=== PATIENT | female | born 1940 | race Caucasian/White ===

== ENCOUNTER 2023-08-31 06:07 | Day surgery (SDC) | payer MEDICARE, BC, SELFPAY ==
[2023-08-31] VITALS (17 sets, daily range): BP systolic 140–177; BP diastolic 63–80; PULSE 60–65; RESP 12–16; TEMP 36.4–36.5; O2SAT 93–97; BMI 36.6
--- OUTSIDE RECORDS SUMMARY | 2023-08-31 06:13 | XMS_ITS | Clinical Summary ---
Author Organization [facility] Address [address] [facility] [place] [address] Care Team Providers Care School Psychology Professor Name Role Phone Shimon Graves Primary Care Provider Deanna Jensen MD Unavailable [phone] Allergies Active Allergy Reactions Criticality Noted Date Comments Chlorpheniramine Maleate Palpitations Low 1 Heart racing Ibuprofen Sodium Rash Low 08/08/2010 Latex Hives 08/08/2010 Diclofenac Sodium Palpitations Low 08/08/2010 Heart racing Medications Medication Sig Dispensed Refills Start Date End Date Status Calcium Carbonate-Vitamin D (CALCIUM + D) 600-200 MG-UNIT per tablet Take 2 tablets by mouth daily. 08/08/2010 Active potassium chloride (KLOR-CON) 10 MEQ CR tablet Take 10 mEq by mouth daily. 08/08/2010 Active Celecoxib (CELEBREX PO) Take 200 mg by mouth daily Active psyllium (METAMUCIL) 58.6 % POWD Take by mouth daily Activ e oxyCODONE-acetamin ophen (PERCOCET) 5-325 MG per tabletIndications: S/P ear surgery Take 1 tablet by mouth every 4 hours as needed for pain Maximum 6 tablets per day 50 tablet 0 01/20/2016 Active atorvastatin (LIPITOR) 40 MG tablet atorvastatin 40 mg tablet TAKE 1 TABLET BY MOUTH AT BEDTIME 06/21/2020 Active baclofen (LIORESAL) 10 MG tablet baclofen 10 mg tablet TAKE 1 TO 2 TABLETS BY MOUTH NEEDED IN THE EVENING FOR MUSCLE SPASM 12/27/2019 Active furosemide (LASIX) 20 MG tablet furosemide 20 mg tablet TAKE 1 TABLET BY MOUTH IN THE MORNING 04/18/2021 Active metFORMIN (GLUCOPHAGE) 500 MG tablet Take 500 mg by mouth 04/24/2021 Active meclizine (ANTIVERT) 25 MG tabletIndications: Meniere's disease, bilateral Take 1 tablet (25 mg) by mouth 3 times daily as needed for dizziness 180 tablet 3 05/04/2023 Active triamterene-HCTZ (MAXZIDE-25) 37.5-25 MG tabletIndications: Meniere's disease, bilateral Take 1 tablet by mouth daily 90 tablet 3 05/04/2023 Active Active Problems Problem Noted Date Diagnosed Date Advance care planning 03/20/2016 Overview: Advance Care Planning 03/20/2016: Receipt of ACP document: Received: Health Care Directive which was witnessed or notarized on 01/13/16. Document previously scanned on 01/21/16. Validation form completed and sent to be scanned. Code Status needs to be updated to reflect choices in most recent ACP document. Confirmed/documented designated decision maker(s). Added by Karen Avery Advance Care Planning Liaison Social History Tobacco Use Types Packs/Day Years Used Date Smoking Tobacco: Former Cigarettes Q uit: 08/08/1994 Tobacco Cessation:Counseling Given: Not Answered Alcohol Use Standard Drinks/Week Comments No 0 (1 standard drink = 0.6 oz pur e alcohol) PHQ-2 Answer Date Recorded PHQ-2 Score 0 06/02/2022 Adolescent Education Answer Date Record ed Getting School Help Needed Not on file 12/19 Sex and Gender Information Value Date Recorded Sex Assigned at Not on file Gender Identity Not on file Sexual Orientation Not on file Last Filed Vital Signs Vital Sign Reading Time Taken Comments Blood Pressure 136/83 05/04/2023 11:15 AM HEEL SLICKER Pulse 71 05/04/2023 11:15 AM HEEL SLICKER Temperature 36.7 ??C (98.1 ??F) 01/20/2016 2:20 PM CS T Respiratory Rate 19 01/20/2016 2:20 PM HEEL SLICKER Oxygen Saturation 97% 04/16/2020 1:53 PM HEEL SLICKER Inhaled Oxygen Concentration - - Weight 96.8 kg (213 lb 6.5 oz) 01/20/2016 7:48 A M HEEL SLICKER Height 168.1 cm (5' 6.2) 01/20/2016 7:48 AM HEEL SLICKER Body Mass Index 34.24 01/20/2016 7:48 AM HEEL SLICKER Plan of Treatment Upcoming Encounters Date Type Department Care Team (Late st Contact Info) Description 10/13/2023 11:00 AM CDT Office Visit [facility] [id number] [place] [phone] Deanna Parham MD [address] [facility] [address] [place] [address] 10/13/2023 11:30 AM CDT Office Visit [facility] [address] [address] Gigi Patterson, Nadeem [id number] [place] [id number] Health Maintenance Due Date Last Done Comments ANNUAL REVIEW OF HM ORDERS 1941 DEXA 1941 LIPID 1941 RSV VACCINE ( & 60+) (1 - 1-dose 60+ series) 2001 FALL RISK ASSESSMENT 2006 ADVANCE CARE PLANNING 03/20/2021 03/20/2016, 017 MEDICARE ANNUAL WELLNESS VISIT 12/05/2022 12/05/2021 PHQ-2 (once per calendar year) 2023 06/02/2022, 05/14/2021 COVID-19 Vaccine ( season) 2023 01/08/2023, 12/05/2021, 08/01/2021, Additional history exists DTAP/TDAP/TD IMMUNIZATION (3 - Td or Tdap) 09/05/2025 09/06/2015, 04/14/2004, 04/14/2004, Additional history exists Pneumococcal Vaccine: 65+ Years Completed 08/01/2014, 06/22/2007 ZOSTER IMMUNIZATION Completed 07/18/2018, 05/10/2018, 07/27/2011 INFLUENZA VACCINE Completed 01/08/2023, , 12/23/2020, Additional history exists HPV IMMUNIZATION Aged Out No longer e ligible based on patient's age to complete this topic IPV IMMUNIZATION Aged Out No longer e ligible based on patient's age to complete this topic MENINGITIS IMMUNIZATION Aged Out No l onger eligible based on patient's age to complete this topic RSV MONOCLONAL ANTIBODY Aged Out No l onger eligible based on patient's age to complete this topic Medical Devices Implanted Type Area Horticultural Agent Device Identifier Shelf Expiration Date Model / Serial / Lot Sheet Silicone [id number] [id number] Implanted:Qty: 1 on 08/11/2010 at [facility] [employer] 01/04/2015 [id number] / / [id number] Imp Breast 650ml Gel Round Hp [id number] Implanted:Qty: 1 on 07/27/2012 by Ravi Dawn MD at [facility] Right: Breast [employer] 03/07/2017 [id number] / [id number] Imp Breast 650ml Gel Round Hp [id number] Implanted:Qty: 1 on 07/27/2012 by Ravi Dawn MD at [facility] Left: Breast [employer] 10/05/2016 [id number] / [id number] Sheet Silicone [id number] [id number] Implanted:Qty: 1 on 01/20/2016 by Morro Alexander DO at [facility] Right: Ear [employer] 06/02/2020 [id number] / / [id number] Ear Imp Torp Hare 5x1.0mm Plasti-Pore [id number] Implanted:Qty: 1 on 01/20/2016 by Morro Alexander DO at [facility] Right: Ear [employer] 03/26/2025 [id number] / / [id number] Advance Directives For more information, please contact: [phone] Documents on File Type Date Recorded Patient Machine Inspector Expl anation Advance Directives and Living Will 01/21/2016 12:44 PM Health Care Directiv e 01/13/16 Care Teams School Psychology Professor Relationship Specialty Start Date End Date Shimon Graves PCP - General 08/07/10 Deanna Parham MD [address] [facility] [address] [place], [place] [address] Assigned Surgical Provider 04/21/20
--- OUTSIDE RECORDS SUMMARY | 2023-08-31 06:13 | XMS_ITS | Clinical Summary ---
Author Organization [facility] Address [place], [place] [address] Care Team Providers Care Sql Server Architect Name Role Phone Tani Verduzco DO Primary Care Provider [phone] Allergies Active Allergy Reactions Criticality Noted Date Comments Chlorpheniramine Palpitations 04/09/2006 rapid heart beats Ibuprofen Rash 04/09/2006 Latex 04/09/2006 pt says has skin sloughing when wears latex gloves. However she says she can blow up balloons and has no problems with elastic or bandaids. Diclofenac Rash 04/09/2006 Medications Medication Sig Dispensed Refills Start Date End Date Status zinc 50 mg tablet Take 50 mg by mouth. Two times weekly on Wednesday and Wednesday 0 2 Active vitamin B complex (B-COMPLEX VITAMIN) tablet Take 1 tablet by mouth once daily. 0 6 Active meclizine (ANTIVERT) 25 mg tablet Take 25 mg by mouth 2 times daily. Active calcium carbonate-cholecalc iferol, 600mg-200 units, (CALTRATE-600 + VIT D) tablet Take 1 tablet by mouth once daily with lunch. Active durable medical equipment (DME)Indications:SO B (shortness of breath),Bilateral lower extremity edema,Atelectasis Incentive spirometer 1 Each 1 Active durable medical equipment (DME)Indications:Franny mbar radicular pain,Right leg pain,Right leg weakness PowerLift Chair 1 Each 2 Active aspirin (ECOTRIN) 81 mg enteric coated tabletIndications:C oronary artery disease Take 1 Tablet (81 mg) by mouth once daily with a meal. 0 2 Active prednisoLONE acetate 1% ophthalmic (ECONOPRED PLUS, PRED FORTE, OMNIPRED) suspension Place 3 Drops into the ear(s) each time if needed. 2 Active nitroglycerin (NITROSTAT) 0.4 mg sublingual tabletIndications:D OE (dyspnea on exertion) Place 1 Tablet (0.4 mg) under the tongue every 5 minutes if needed for Chest Pain. May repeat up to total of 3 doses 10 Tablet 2 2 Active triamterene-hydroch lorothiazide, 37.5-25 mg, (MAXZIDE-25) 37.5-25 mg tablet Take 1 Tablet by mouth once daily. 3 Active durable medical equipment (DME)Indications:Franny mbar radicular pain,VELASCO (dyspnea on exertion) Walker with seat. 1 Each 3 Active potassium chloride (K-TAB) 10 mEq extended-release tablet Take 1 Tablet (10 mEq) by mouth once daily with a meal. 0 3 Active furosemide (LASIX) 40 mg tablet As needed Active atorvastatin (LIPITOR) 40 mg tabletIndications:M ixed hyperlipidemia TAKE 1 TABLET BY MOUTH AT BEDTIME 90 Tablet 2 3 Active sennosides (Senna) 8.6 mg tablet Take 8.6 mg by mouth 2 times daily if needed for Constipation. Active albuterol HFA (ProAir HFA) 90 mcg/actuation inhalerIndications: Wheezing,SOB (shortness of breath) Inhale 1-2 Puffs by mouth every 6 hours if needed for Shortness of Breath 1st choice. 1 Each 3 Active blood sugar diagnostic (Contour Next Test Strips) stripIndications:Ty pe 2 diabetes mellitus with hyperglycemia, without long-term current use of insulin (HC) Dispense item covered by pt ins. E11.9 NIDDM type II - Test 1 time/day. Reason: High A1C 200 Each 3 4 Active metFORMIN (GLUCOPHAGE) 500 mg tabletIndications:T ype 2 diabetes mellitus with hyperglycemia, without long-term current use of insulin (HC) TAKE 1 TABLET BY MOUTH ONCE DAILY WITH A MEAL 90 Tablet 3 4 Active metoprolol succinate (TOPROL XL) 25 mg Sustained-Release tabletIndications:H ypertension, unspecified type Take 1 Tablet (25 mg) by mouth once daily. Please call to schedule with Zoe Bonilla PA-C. 90 Tablet 4 Active gabapentin (NEURONTIN) 300 mg capsuleIndications: Lumbar radicular pain TAKE 2 CAPSULES BY MOUTH THREE TIMES DAILY 540 Capsule 4 Active gabapentin (NEURONTIN) 300 mg capsuleIndications: Lumbar radicular pain TAKE 2 CAPSULES BY MOUTH THREE TIMES DAILY 540 Capsule 4 08/26/19 24 Discontinued Active Problems Problem Noted Date Diagnosed Date Encephalopathy 02/10/2023 COVID-19 02/10/2023 MGUS (monoclonal gammopathy of unknown significa nce) 10/21/2022 Diabetic ulcer of toe of lef t foot associated with type 2 diabetes mellitus, with fat layer exposed 05/28/2022 Type 2 diabetes mellitus wit h hyperglycemia, without long-term current use of insulin 09/09/2021 Angina at rest 06/17/2020 Sinus bradycardia 06/17/2020 Overview: Dual chamber placement in 2018 with ate reprogramming in 2019. Last seen cardiology on 04/03/2020. Sinus node dysfunction 04/03/2020 Hypertensive disorder 09/21/2018 Abnormal nuclear stress test 09/21/2018 Murmur 09/13/2018 Coronary artery disease 09/13/2018 Overview: 3 stents placed October 2018 followed by dual chamber pacemaker in November. Patient says she has 6 stents? Morbid obesity due to excess calories 09/13/2018 Trigger thumb of right hand 09/06/2018 S/P trigger finger release 03/22/2018 Skin cancer 03/17/2018 Overview: 12/2017- right cheek, BCC, Mohs 03/28/18 [place] 12/01/16, left cheek, BCC nodular, Mohs 03/22/17 Dixon Trigger finger of left thumb 02/22/2018 Adenomatous colon polyp 10/01/2017 Overview: Colonoscopy 09/2017 polyp, repeat in 5 years Lumbar radicular pain 03/25/2016 Overview: Mar 2016: started gabapentin (neurontin). ~ March 2016: epidural steroid injection by Dr. Guerra was ~ March 2014:L3-L4 TF epidural steroid injection by Dr. Guerra. Mixed hyperlipidemia 09/06/2015 Renal mass, right 07/29/2015 Venous insufficiency of both lower extremities 0 06/18/2014 Bunion of great toe of left foot 06/18/2014 Advance care planning 09/28/2013 Overview: Directive is on file Advance Care Planning 03/20/2016: Receipt of ACP document: Received: Health Care Directive which was witnessed or notarized on 01/13/16. Document previously scanned on 01/21/16. Validation form completed and sent to be scanned. Code Status needs to be updated to reflect choices in most recent ACP document. Confirmed/documented designated decision maker(s). Added by Karen Avery Advance Care Planning Liaison Breast cancer 11/20/2011 Meniere's disease of both ears 08/06/2010 Internal hemorrhoids with other complication 07/2007 Resolved Problems Problem Noted Date Diagnosed Date Resolved Date MARY 08/10/2012 AHI-45 retest 04/2021- AHI-2.2 08/14/2012 08/01/2021 Encounters Date Type Department Care Team Description 08/25/2023 4:30 PM CDT Office Visit [facility] [address] [place] [address] Kari Lin MD Consult (Temporal artery biopsy per Dr. Lobo ) 08/25/2023 3:40 PM CDT Office Visit [facility] [place] [facility] [address] [place] [address] Otf Lobo MD Follow Up (Follow up CT results ) 08/25/2023 Travel 08/25/2023 Refill [facility] [address] [place] [address] Tani Verduzco, Refill Request (Gabapentin) 08/20/2023 9:00 AM CDT Ancillary Procedure [facility] [address] [place] [address] 08/20/2023 Travel 08/11/2023 4:00 PM CDT Orders Only [facility] [address] [place] [address] Lab, [place] [facility] 08/11/2023 3:20 PM CDT Office Visit [facility] [place] [facility] [address] [place] [address] Otf Lobo MD Consult (Temporal pain /Spot on rt side that feels like it is always bruised, cancer was removed ) 08/11/2023 Telephone [facility] [address] [place] [phone] Emily Laureano RN Device Check (MRI screening) 08/11/2023 Travel 08/05/2023 Telephone [facility] [address] [place] [phone] Otf Lobo MD Referral (Neurology) 08/05/2023 Telephone [facility] [address] [facility] [address] Tani Verduzco DO Referral 08/05/2023 Orders Only [facility] [address] [facility] [facility] [place] [address] Tani Verduzco, <No scans attached> 08/03/2023 Telephone [facility] [address] [facility] [place] [address] Tani Verduzco DO Referral 07/30/2023 2:40 PM CDT Office Visit [facility] [address] [place] [phone] Kate Pereira, BRI Eye Exam (Diabetic) 07/29/2023 9:44 AM CDT - 07/29/2023 11:59 PM CDT Hospital Encounter [facility] [address] [place] [address] Tani Verduzco DO Bumps on skin; Generalized enlarged lymph nodes; Localized enlarged lymph nodes 07/29/2023 Telephone [facility] [address] [place] [address] Tani Verduzco DO Results (ULTRA SOUND) 07/29/2023 Telephone [facility] [address] [place] [address] Tani Verduzco DO Results 07/29/2023 Travel 07/26/2023 3:30 PM CDT Office Visit [facility] [address] [place] [address] Ivette Macedo MD Consult (Right Temporal pain referred by Dr. Hai Verduzco) 07/26/2023 Travel 07/23/2023 9:20 AM CDT Office Visit [facility] [address] [place] [address] Tani Verduzco, Knee Pain/problem (Behind LEFT knee - x2-3 weeks ago was walking and had pain behind her knee and then noted a lump ); Arm Pain/problem (LEFT arm crease - feels small lump - has been bruising more frequent / bleeding ) 07/23/2023 Travel 06/21/2023 Telephone [facility] [address] [facility] [address] [place] [address] Otf Keating MD Refill Request from Last 3 Months Immunizations Name Administration Dates Next Due COVID-19 Vaccine Spikevax (M oderna 50mcg/0.5mL) 12YO+ [id number] Formula PF 01/08/2023 COVID-19 vaccine (Pfizer-Bio NTech 30mcg/0.3mL) 12YO+ BIVALENT PF, MDV 12/05/2021 COVID-19 vaccine (Pfizer-Bio NTech 30mcg/0.3mL) 12YO+ ERASTO-SUCROSE PF, MDV 08/01/2021 COVID-19 vaccine (Pfizer-Bio NTech 30mcg/0.3mL) PF, MDV 12/23/2020,06/01/2020,05/11/2020 Influenza, High-dose Inactivated 12/04/2015,07/2014,12/06/2013 Influenza, IIV3 (Age 6-35 mos) 11/25/2010 Influenza, IIV3 (Age >=3 years) 12/13/19 13,11/20/2011,11/25/2010,2009,12/26/2008,01/10/2008,01/11/2006,1 03/10/2004 Influenza, Inactivated AIIV4 (Age 65+ Years) Preserv Free 01/08/2023,12/05/2021,12/23/2020,2019 Influenza, Inactivated IIV3 (Age 65+ Years) Preserv Free 12/08/2018,11/18/2017,12/29/2016 Pneumococcal Poly,23-Valent (Pneumovax) 06/22/2007 Pneumococcal conj 13-Valent (Prevnar 13) 08/01/2014 Td (Age >=7 Years) 04/14/2004,04/09/2001 Td, Preservative Free (age > = 7 Years) 09/06/2015 Tdap 04/14/2004 Zoster (Shingrix-RZV, recombinant) 07/18/2018, Zoster (Zostavax-ZVL, live) 07/27/2011 Family History Medical History Relation Name Comments Diabetes Brother Heart Disease Brother of diabet es at age 27 Cancer-breast Maternal Aunt orquidea Cancer-breast Maternal Grandmother Diabetes Mother Heart Disease Mother Anesthesia Problem Neg. Other Other No bleeding pro blems or blood clots Relation Name Status Comments Brother Father Maternal Aunt orquidea Maternal Grandmother Mother Neg. Other Social History Tobacco Use Types Packs/Day Years Used Date Smoking Tobacco: Former Cigarettes 0.8 40 0 [birth year]/02/1954 - 05/02/1994 Passive Smoke Exposure: Never Smokeless Tobacco: Never Tobacco Cessation:Counseling Given: Yes Comments:Quit in 1994 Alcohol Use Standard Drinks/Week Comments No 0 (1 standard drink = 0.6 oz pur e alcohol) PHQ-2 Answer Date Recorded PHQ-2 TOTAL SCORE 0 12/05/2021 Social Connections Answer Date Recorded Frequency of Communication with Friends and Fami ly 0 02/11/2023 Financial Resource Strain Answer Date R ecorded Difficulty of Paying Living Expenses 3 02/11/2023 Difficulty of Paying Living Expenses Not on file 02/11/2023 Food Insecurity Answer Date Recorded Worried About Running Out of Food in the Last Ye ar 1 02/11/2023 Transportation Needs Answer Date Record ed Lack of Transportation (Medical) 1 02/11/2023 Housing Stability Answer Date Recorded Unable to Pay for Housing in the Last Year 1 02/11/2023 Sex and Gender Information Value Date Recorded Sex Assigned at Not on file Gender Identity Not on file Sexual Orientation Not on file Obstetrics History Para Term AB IAB SAB Ectopic Multiple Livin g Live Births 0 0 0 0 0 0 0 0 0 0 0 Last Filed Vital Signs Vital Sign Reading Time Taken Comments Blood Pressure 144/84 08/25/2023 3:11 PM CDT Vitals pulled from earlier visit today. Pulse 68 08/25/2023 3:11 PM CDT Vitals pulled from earlier visit today. Temperature 37.1 ??C (98.8 ??F) 02/12/2023 8 :23 AM BEHAVIORAL HEALTH COUNSELOR Respiratory Rate 18 02/12/2023 8:23 AM BEHAVIORAL HEALTH COUNSELOR Oxygen Saturation 94% 08/25/2023 3:1 1 PM CDT Vitals pulled from earlier visit today. Inhaled Oxygen Concentration - - Weight 102.1 kg (225 lb) 08/11/2023 2:5 9 PM CDT Height 162.6 cm (5' 4) 02/10/2023 6:39 PM BEHAVIORAL HEALTH COUNSELOR Body Mass Index 38.62 02/10/2023 6:39 PM BEHAVIORAL HEALTH COUNSELOR Plan of Treatment Upcoming Encounters Date Type Department Care Team (Late st Contact Info) Description 08/31/2023 8:00 AM CDT Office Visit [facility] [address] [place] [phone] Kari Lin MD [address] [place] [address] 09/30/2023 2:20 PM CDT Office Visit [facility] [address] [id number] Alondra Koch MD [address] [facility] [address] [place], [place] [address] 10/19/2023 11:[address] [facility] [address] [place] [address] 10/19/2023 4:00 PM CDT Appointment [facility] Pacemaker MRI/CT [address] [place] [address] 10/20/2023 1:30 PM CDT Cardiac Device Check [facility] [place] [facility] [address] [place] [address] 10/27/2023 11:00 AM CDT Office Visit [facility] [place] [facility] [address] [place] [address] Otf Lobo MD [address] [place] [address] Health Maintenance Due Date Last Done Comments Depression screening for age 12+ 12/05/2022 12/05/2021, 08/01/2021, 08/01/2021, Additional history exists Medicare Wellness for age 65+ 12/06/2022, 10/09/2016, 09/06/2015, Additional history exists COVID-19 vaccine series (2022- season) 2023 01/08/2023, 12/05/2021, 08/01/2021, Additional history exists BMI (ht and wt on same day) for age 18+ 06/27/2023 06/26/2022, 01/30/2022, 12/05/2021, Additional history exists Influenza for age 65+ 11/07/2023 01/08/2023 , 12/05/2021, 12/23/2020, Additional history exists Tetanus booster 09/05/2025 09/06/2015, 09/2004, 04/14/2004, Additional history exists Tdap Completed 04/14/2004 DEXA/DXA scan for age 65+ Completed 08/20/2011, Pneumococcal series for age 65+ Completed 5, 06/22/2007 Zoster (shingles) series for age 50+ Completed 07/18/2018, 05/10/2018, 07/27/2011 Medical Devices Implanted Type Area Statement Clerks Manager Device Identifier Shelf Expiration Date Model / Serial / Lot [id number] xpander Tissue Cpx3 Ht W/Sut Tab 550cc [[id number]] Implanted:Qty: 1 on 10/05/2011 at [facility] Explanted:at [facility] (Quantity not on file) Left: Breast [employer]Now [id number]# / [id number] / [id number] xpander Tissue Cpx3 Ht W/Sut Tab 550cc [[id number]] Implanted:Qty: 1 on 10/05/2011 at [facility] Explanted:at [facility] (Quantity not on file) Right: Breast [employer]Now [id number]# / [id number] / [id number] - [id number] Implanted:Qty: 1 on 07/19/2017 by Rafael Neal DPM at [facility] Right: Foot [employer] [id number] / / Description:3.0 headed screw 18 mm length [id number] - [id number] Implanted:Qty: 1 on 07/19/2017 by Rafael Neal DPM at [facility] Right: Foot [id number] / / Description:3.0mm headed scr ew 20mm length Lead Kit 4.32mm Spacing 28cm Length Interstim - [id number] Implanted:Qty: 1 on 11/24/2022 by Jeremy Gerardo MD at [facility] Right: [facility] [employer] Pain Therapy 06/14/2024 [id number] / / [id number] Neuro Tyrx Absorb Antibacterial - [id number] Implanted:Qty: 1 on 11/24/2022 by Jeremy Gerardo MD at [facility] Right: Buttock Medtronic 05/21/2023 [id number] / / [id number] Sys Interstim X Surescan Mri Lead And Smart Lineman Service Or Work Dispatcher - [id number] Implanted:Qty: 1 on 11/24/2022 by Jeremy Gerardo MD at [facility] Right: Buttock Medtronic Pain Therapy 03/21/2024 [id number] / / [id number] H Procedures Procedure Name Priority Date/Time Associated Diagnosis Comments CT HEAD BRAIN WO Routine 08/20/2023 9:22 AM CDT Temporal arteritis (HC) C-REACTIVE PROTEIN Routine 08/11/2023 4: 00 PM CDT Temporal arteritis (HC) SEDIMENTATION RATE Routine 08/11/2023 4: 00 PM CDT Temporal arteritis (HC) US UPPER EXTREMITY SOFT TISSUE LEFT Routine 07/29/2023 10:21 AM CDT Bumps on skin Generalized enlarged lymph nodes US LOWER EXTREMITY SOFT TISSUE LEFT Routine 07/29/2023 10:21 AM CDT Bumps on skin Localized enlarged lymph nodes URINE ALBUMIN TO CREATININE RATIO, RANDOM Routine 07/23/2023 10:09 AM CDT Type 2 diabetes mellitus with hyperglycemia, without long-term current use of insulin (HC) CBC WITH AUTO DIFFERENTIAL Routine 07/23/2023 10:01 AM CDT Easy bruising C-REACTIVE PROTEIN Routine 07/23/2023 10 :01 AM CDT Temporal pain SEDIMENTATION RATE STAT 07/23/2023 10 :01 AM CDT Temporal pain CBC WITH AUTO DIFFERENTIAL Routine 07/23/2023 10:01 AM CDT Easy bruising XR DXA BONE DENSITY 2 SITES AXIAL Routine 08/20/2011 9:57 AM CDT Menopausal state from Last 3 Months or Most Recently Relevant to Health Maintenance Results * CT HEAD BRAIN WO (08/20/2023 9:22 AM CDT) Anatomical Region Laterality Modality HEAD, BRAIN Computed Tomogra phy 08/20/2023 10:4 5 AM CDT Impressions 08/20/2023 10:45 AM CDT No acute intracranial abnormality. No significant changes compared to the prior exam. Please note that all CT scans at this facility use dose modulation, iterative reconstruction, and/or weight-based dosing when appropriate to reduce radiation dose to as low as reasonably achievable. Dictated by Shimon Flores MD @ 08/20/2023 10:45:32 AM (Electronically Signed) Narrative 08/20/2023 10:45 AM CDT For Patients: ??As a result of the Cures Act, medical imaging exams and procedure reports are released immediately into your electronic medical record. ??You may view this report before your referring provider. ??If you have questions, please contact your health care provider. INDICATION: Localized right temporal pain post cancer removal - rule out metastatic deposit. Temporal arteritis, headache, new or worsening TECHNIQUE: CT of the head without contrast. Coronal and sagittal reformats. Bone and soft tissue algorithms. COMPARISON: CT 02/10/2023 FINDINGS: No acute intracranial hemorrhage or extra-axial collection. No evidence of acute cortical infarction. ?? No mass effect or midline shift. Mild generalized cerebral/cerebellar parenchymal volume loss. Mild regions of decreased attenuation within the periventricular and subcortical white matter of both cerebral hemispheres most likely reflects chronic microvascular ischemic disease and age related change in this patient. Vascular calcifications within the carotid siphons and vertebral arteries. Stable foci of hypoattenuation in the basal ganglia that likely represent prominent perivascular spaces. Orbital contents are normal. ??No calvarial fractures. No lytic or sclerotic osseous lesions within the calvarium or skull base. Hyperostosis frontalis internus. Scalp and other imaged soft tissue structures are normal. Mastoid air cells are clear. Left canal wall up mastoidectomy. Procedure Note Shimon Flores MD - 08/20/2023 For Patients: As a result of the Cures Act, medical imagingexams and procedure reports are released immediately into your electronicmedical record. You may view this report before your referring provider.If you have questions, please contact your health care provider. INDICATION: Localized right temporal pain post cancer removal - rule out metastaticdeposit. Temporal arteritis, headache, new or worsening TECHNIQUE: CT of the head without contrast. Coronal and sagittal reformats. Bone andsoft tissue algorithms. COMPARISON: CT 02/10/2023 FINDINGS: No acute intracranial hemorrhage or extra-axial collection. No evidence ofacute cortical infarction. No mass effect or midline shift. Mild generalized cerebral/cerebellarparenchymal volume loss. Mild regions of decreased attenuation within theperiventricular and subcortical white matter of both cerebral hemispheresmost likely reflects chronic microvascular ischemic disease and agerelated change in this patient. Vascular calcifications within the carotidsiphons and vertebral arteries. Stable foci of hypoattenuation in thebasal ganglia that likely represent prominent perivascular spaces. Orbital contents are normal. No calvarial fractures. No lytic orsclerotic osseous lesions within the calvarium or skull base. Hyperostosisfrontalis internus. Scalp and other imaged soft tissue structures arenormal. Mastoid air cells are clear. Left canal wall up mastoidectomy. IMPRESSION: No acute intracranial abnormality. No significant changes compared to theprior exam. Please note that all CT scans at this facility use dose modulation,iterative reconstruction, and/or weight-based dosing when appropriate toreduce radiation dose to as low as reasonably achievable. Dictated by Shimon Flores MD @ 08/20/2023 10:45:32 AM (Electronically Signed) Otf Lobo MD CT * SEDIMENTATION RATE (08/11/2023 4:00 PM CDT) Only the most recent of2 resultswithin the time period is included. [facility] SEDIMENTATION RATE 17 <30 mm/hr 2023 2:39 PM CDT [facility] Blood BLOOD SPECIMEN / Unknown Butterfly / Unknown 08/11/2023 4:00 PM CDT 08/11/2023 4:01 PM CDT Otf Lobo MD [facility] [address] [place] [address], * C-REACTIVE PROTEIN (08/11/2023 4:00 PM CDT) Only the most recent of2 resultswithin the time period is included. [facility] C-REACTIVE PROTEIN 0.4 <0.5 mg/dL 08/12/2023 2:08 PM CDT [facility] Blood BLOOD SPECIMEN / Unknown Butterfly / Unknown 08/11/2023 4:00 PM CDT 08/11/2023 4:01 PM CDT Otf Lobo MD CHEMISTRY [facility] [address] [place] [address], [place] * US UPPER EXTREMITY SOFT TISSUE LEFT (07/29/2023 10:21 AM CDT) Anatomical Region Laterality Modality ARM L Ultrasound, Othe r 07/29/2023 10:4 2 AM CDT Narrative 07/29/2023 10:42 AM CDT For Patients: ??As a result of the Cures Act, medical imaging exams and procedure reports are released immediately into your electronic medical record. ??You may view this report before your referring provider. ??If you have questions, please contact your health care provider. INDICATION: Bumps on skin. Generalized enlarged lymph nodes. TECHNIQUE: Ultrasound left upper extremity. FINDINGS: Targeted ultrasound was obtained over the left antecubital space in the area of interest. There is a 1.5 x 1.2 x 0.8 cm hyperechoic focus within the subcuticular soft tissues. Dermis and muscle are normal. Impression: Nonspecific solid focus within the subcuticular tissue of the antecubital space. Dictated by Enedina Pineda MD @ 07/29/2023 10:42:49 AM (Electronically Signed) Procedure Note Jace Pineda MD - 07/29/2023 For Patients: As a result of the Cures Act, medical imagingexams and procedure reports are released immediately into your electronicmedical record. You may view this report before your referring provider.If you have questions, please contact your health care provider. INDICATION: Bumps on skin. Generalized enlarged lymph nodes. TECHNIQUE: Ultrasound left upper extremity. FINDINGS: Targeted ultrasound was obtained over the left antecubital space in thearea of interest. There is a 1.5 x 1.2 x 0.8 cm hyperechoic focus withinthe subcuticular soft tissues. Dermis and muscle are normal. Impression: Nonspecific solid focus within the subcuticular tissue of the antecubitalspace. Dictated by Enedina Pineda MD @ 07/29/2023 10:42:49 AM (Electronically Signed) Adei Kamranqra DO US * US LOWER EXTREMITY SOFT TISSUE LEFT (07/29/2023 10:21 AM CDT) Anatomical Region Laterality Modality ARM R Ultrasound, Othe r 07/29/2023 10:4 0 AM CDT Narrative 07/29/2023 10:40 AM CDT For Patients: ??As a result of the Cures Act, medical imaging exams and procedure reports are released immediately into your electronic medical record. ??You may view this report before your referring provider. ??If you have questions, please contact your health care provider. INDICATION: Palm 7 scan. TECHNIQUE: Ultrasound posterior left thigh. FINDINGS: Targeted ultrasound was obtained over the area of interest in the posterior left thigh just superior to the knee. Normal dermis, subcuticular tissue and muscle. No cyst solid mass or other ultrasound abnormality. No lymphadenopathy. Dictated by Enedina Pineda MD @ 07/29/2023 10:40:55 AM (Electronically Signed) Procedure Note Jace Pineda MD - 07/29/2023 For Patients: As a result of the Cures Act, medical imagingexams and procedure reports are released immediately into your electronicmedical record. You may view this report before your referring provider.If you have questions, please contact your health care provider. INDICATION: Palm 7 scan. TECHNIQUE: Ultrasound posterior left thigh. FINDINGS: Targeted ultrasound was obtained over the area of interest in theposterior left thigh just superior to the knee. Normal dermis,subcuticular tissue and muscle. No cyst solid mass or other ultrasoundabnormality. No lymphadenopathy. Dictated by Enedina Pineda MD @ 07/29/2023 10:40:55 AM (Electronically Signed) Adei Kamranqra DO US * URINE ALBUMIN TO CREATININE RATIO, RANDOM (07/23/2023 10:09 AM CDT) ALB RAND URINE <12.0 mg/L 07/23/2023 7:27 PM CDT [facility] CREATININE,URINE 0.27 g/L 07/23/19 24 7:27 PM CDT [facility] ALBUMIN TO CREATININE RATIO,RAND UR 07/23/2023 7:27 PM CDT [facility] Comment:Urine Albumin below measurement range, unable to calculate. Urine URINE SPECIMEN / Unknown Non-Blood / Unknown 07/23/2023 10:09 AM CDT 07/23/2023 10:[address] [facility] - 07/23/2023 7:27 PM CDT If Albumin to Creatinine Ratio is elevated, consider the following: ? Elevations seen with incipient nephropathy associated ?? with diabetes mellitus or hypertension. Stress, exercise,hematuria, ?? and urinary tract infection may also produce elevated results. If clinically indicated, confirm with ?24 Hour Albumin to Creatinine Ratio. ?? Tani Verduzco DO URINE [facility] [address] [place] [address], * (ABNORMAL) CBC WITH AUTO DIFFERENTIAL (07/23/2023 10:01 AM CDT) WHITE BLOOD COUNT 8.1 4.5 - 11.0 thou/cu mm 07/23/2023 10:14 AM CDT [facility] RED BLOOD COUNT 4.71 4.00 - 5.20 mil/cu mm 07/23/2023 10:14 AM CDT [facility] HEMOGLOBIN 14.0 12.0 - 16.0 g/dL 07/23/2023 10:14 AM CDT [facility] HEMATOCRIT 40.9 33.0 - 51.0 % 07/23/2023 10:14 AM CDT [facility] MCV 87 80 - 100 fL 07/23/2023 10:14 AM CDT [facility] MCH 29.7 26.0 - 34.0 pg 07/23/2023 10:14 AM CDT [facility] MCHC 34.2 32.0 - 36.0 g/dL 07/23/2023 10:14 AM CDT [facility] RDW 13.9 11.5 - 15.5 % 07/23/2023 10:14 AM CDT [facility] PLATELET COUNT 189 140 - 440 thou/cu mm 07/23/2023 10:14 AM CDT [facility] MPV 11.2(H) 6.5 - 11.0 fL 07/23/2023 10:14 AM CDT [facility] % NEUT 69.8 % 07/23/2023 10:14 AM CDT [facility] % LYMPH 20.3 % 07/23/2023 10:14 AM CDT [facility] % MONO 7.4 % 07/23/2023 10:14 AM CDT [facility] % EOS 2.0 % 07/23/2023 10:14 AM CDT [facility] % BASO 0.5 % 07/23/2023 10:14 AM CDT [facility] ABSOLUTE NEUTROPHILS 5.7 1.7 - 7.0 thou/cu mm 07/23/2023 10:14 AM CDT [facility] ABSOLUTE LYMPHOCYTES 1.7 0.9 - 2.9 thou/cu mm 07/23/2023 10:14 AM CDT [facility] ABSOLUTE MONOCYTES 0.6 <0.9 thou/cu mm 07/23/2023 10:14 AM CDT [facility] ABSOLUTE EOSINOPHILS 0.2 <0.5 thou/cu mm 07/23/2023 10:14 AM CDT [facility] ABSOLUTE BASOPHILS 0.0 <0.3 thou/cu mm 07/23/2023 10:14 AM CDT [facility] Blood BLOOD SPECIMEN / Unknown Venipuncture / Unknown 07/23/2023 10:01 AM CDT 07/23/2023 10:04 AM CDT Tani Verduzco DO HEMATOLOGY [facility] [address] [place] [address], * XR DEXA BONE DENSITY 2 SITES (08/20/2011 9:57 AM CDT) Anatomical Region Laterality Modality Spine, HIPS, HIPL, HIPR Other Narrative 08/24/2011 7:49 AM CDT Please see scanned document for results of this study. Procedure Note Michelle Arrington PA - 08/24/2011 Please see scanned document for results of this study. Shimon Graves MD DEXA from Last 3 Months or Most Recently Relevant to Health Maintenance Insurance Payer Benefit Plan / Group Subscriber ID Effective Dates Phone Address Type WC WORKERS COMP WC WORKERS COMP [id number] 2005-Pres ent [address] [place] [address] MEDICARE PART B - HB USE ONLY MEDICARE PART B HB ONLY [id number] 2006-Pres ent ATTN: CLAIMS [address] [place] [address] MEDICARE PART A - HB USE ONLY MEDICARE PART A HB ONLY [id number] 2006-Pres ent ATTN: CLAIMS [address] [place] [address] BLUE CROSS MR BLUE [employer]OSS [employer] MR PB ONLY [id number] 2016-Prese nt [address] [address] [place] [address] BLUE CROSS [employer] BLUE HB ONLY [id number] 2016-Prese nt [address] [address] [place] [address] [facility] [id number] 2022-10/[address] ATTN: [place] [address] Advance Directives Documents on File Type Date Recorded 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 Central 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 anation Healthcare Directive 02/03/2016 10:09 AM UPDATED HEALTHCARE DIRECTIVE, TRACEY GUERRERO, 01/13/16 Healthcare Directive 10/11/2011 3:09 PM * Full Code (Latest Code Status on File) Date Activated Date Inactivated Comments 02/11/2023 1:17 AM 02/12/2023 3:45 PM Question Answer Comments Code Status Discussion: Reviewed Preferences * Full Code Date Activated Date Inactivated Comments 11/24/2022 6:38 AM 11/24/2022 1:38 PM Question Answer Comments Code Status Discussion: Unable to Assess Preferences, Provider to review later * Full Code Date Activated Date Inactivated Comments 11/17/2022 8:40 AM 11/18/2022 2:18 AM Question Answer Comments Code Status Discussion: Unable to Assess Preferences, Provider to review later * Full Code Date Activated Date Inactivated Comments 08/06/2021 5:57 AM 08/06/2021 2:53 PM Question Answer Comments Code Status Discussion: Per Existing Order * Full Code Date Activated Date Inactivated Comments 03/18/2020 9:45 AM 03/18/2020 5:16 PM Question Answer Comments Code Status Discussion: Discussed Care Teams Sql Server Architect Relationship Specialty Start Date End Date Tani Verduzco DO [address] [place] [address] PCP - General Family Practice 05/06/20
--- OUTSIDE RECORDS SUMMARY | 2023-08-31 06:13 | XMS_ITS | Referral Summary ---
Author Organization [employer] Address [address] [place] [address] Care Team Providers Care Career Transition Specialist Name Role Phone Shimon Graves Primary Care Provider Deanna Jensen MD Unavailable [phone] Allergies Active Allergy Reactions Criticality Noted Date [...] Comments Blood Pressure 136/83 05/04/2023 11:15 AM CLOCK MECHANIC Pulse 71 05/04/2023 11:15 AM CLOCK MECHANIC Temperature 36.7 ??C (98.1 ??F) 01/20/2016 2:20 PM CS T Respiratory Rate 19 01/20/2016 2:20 PM CLOCK MECHANIC Oxygen Saturation 97% 04/16/2020 1:53 PM CLOCK MECHANIC Inhaled Oxygen Concentration - - Weight 96.8 kg (213 lb 6.5 oz) 01/20/2016 7:48 A M CLOCK MECHANIC Height 168.1 cm (5' 6.2) 01/20/2016 7:48 AM CLOCK MECHANIC Body Mass Index 34.24 01/20/2016 7:48 AM CLOCK MECHANIC Plan of Treatment Upcoming Encounters Date Type Department Care Team (Late st Contact Info) Description 10/13/2023 11:00 AM CDT Office Visit [address] [address] Deanna Parham MD [address] [place] [address] 10/13/2023 11:30 AM CDT Office Visit [facility] [address] [address] Gigi Patterson AuD [address] [place] [address] Medical Devices Implanted Type Area Hemp Fiber Taker Off Device Identifier Shelf Expiration Date Model / Serial / Lot Sheet Silicone [id number] Implanted:Qty: 1 on 08/11/2010 at [facility] [employer] 01/04/2015 [id number] / / [id number] Imp Breast 650ml Gel Round Hp [id number] Implanted:Qty: 1 on 07/27/2012 by Ravi Dawn MD at [facility] Right: Breast [employer] 03/07/2017 [id number] / [id number] Imp Breast 650ml Gel Round Hp [id number] Implanted:Qty: 1 on 07/27/2012 by Ravi Dawn MD at [facility] Left: Breast [employer] 10/05/2016 [id number] / [id number] Sheet Silicone [id number] Implanted:Qty: 1 on 01/20/2016 by Morro Alexander DO at [facility] Right: Ear [employer] 06/02/2020 [id number] / / [id number] Ear Imp Torp Hare 5x1.0mm Plasti-Pore [id number] Implanted:Qty: 1 on 01/20/2016 by Morro Alexander DO at [facility] Right: Ear [employer] 03/26/2025 [id number] / / [id number] Advance Directives For more information, please contact: [phone] Documents on File Type Date Recorded Patient Plant And Maintenance Technician Expl anation Advance Directives and Living Will 01/21/2016 12:44 PM Health Care Directiv e 01/13/16 Care Teams Career Transition Specialist Relationship Specialty Start Date End Date Shimon Graves PCP - General 08/07/10 Deanna Parham MD [address] [facility] [address] [place] [address] Assigned Surgical Provider 04/21/20
--- OUTSIDE RECORDS SUMMARY | 2023-08-31 06:13 | XMS_ITS | Encounter Summary ---
Author Organization [place] Address [address] [facility] [place] [address] Care Team Providers Care Technical Services Assistant Name Role Phone Shimon Graves A Primary Care Provider Deanna Jensen MD Unavailable [phone] Reason for Visit * Reason Onset Date Comments Medication Question 12/01/2021 Medication Q uestion or concern regarding medication Prescription ClarificationName of Medication: prednisolone ear dropsPrescribing Provider: Prasad [facility]: [facility] [place] What on the order needs clarification? Pt wants to know if there is a generic med this one is to expensive Encounter Details Date Type Department Care Team (Late st Contact Info) Description 12/01/[address] [address] Deanna Parham MD [address] [place] [address] [address] [place] [address] Medication Question (Medication Question or concern regarding medication /Prescription Clarification/Name of Medication: prednisolone ear drops/Prescribing Provider: Prasad / Pharmacy: [facility] [place]/ What on the order needs clarification? Pt wants to know if there is a generic med this one is to expensive/) Social History Tobacco Use Types Packs/Day Years Used Date Smoking Tobacco: Former Cigarettes Q uit: 08/08/1994 Alcohol Use Standard Drinks/Week Comments No 0 (1 standard drink = 0.6 oz pur e alcohol) PHQ-2 Answer Date Recorded PHQ-2 Score 0 05/14/2021 Sex and Gender Information Value Date Recorded Sex Assigned at Not on file Gender Identity Not on file Sexual Orientation Not on file COVID-19 Exposure Response Date Recorded In the last 10 days, have yo u been in contact with someone who was confirmed or suspected to have Coronavirus/COVID-19? No / Unsure 11/28/2021 10:55 AM CDT documented as of this encounter Miscellaneous Notes * Telephone Encounter - Teresa Byrd - 12/01/2021 2:19 PM CDT M [facility] Call Center Phone Message May a detailed message be left on voicemail: yes Reason for Call: Medication Question or concern regarding medication Prescription Clarification Name of Medication: prednisolone ear drops Prescribing Provider: Prasad [facility]acy: [facility] [place] What on the order needs clarification? Pt wants to know if there is a generic med this one is to expensive Action Taken: Other: routing to Refill team Travel Screening: Not Applicable documented in this encounter Plan of Treatment Upcoming Encounters Date Type Department Care Team (Late st Contact Info) Description 10/13/2023 11:00 AM CDT Office Visit [address] [address] Deanna Parham MD [address] [facility] [address] [place], [place] [address] 10/13/2023 11:30 AM CDT Office Visit [facility] [place] [id number] [place] [address] Gigi Patterson AuD [address] [place] [address] [phone] documented as of this encounter Visit Diagnoses Diagnosis Chronic otitis media of right ear with posterior perforation- Primary documented in this encounter Care Teams Technical Services Assistant Relationship Specialty Start Date End Date Shimon Graves PCP - General 08/07/10 Deanna Parham MD [address] [facility] [address] [place] [address] Assigned Surgical Provider 04/21/20 documented as of this encounter
--- OUTSIDE RECORDS SUMMARY | 2023-08-31 06:13 | XMS_ITS | Encounter Summary ---
Author Organization [place] Address [facility] [place] [address] Care Team Providers Care Barge Hand Name Role Phone StarShimon A Primary Care Provider Deanna Jensen MD Unavailable [phone] Reason for Visit * Reason Onset Date Comments Prior Auth - Medication 12/02/2021 ciproflo xacin-dexamethasone (CIPRODEX) 0.3- 0.1 % otic suspension - EPA DENIED Encounter Details Date Type Department Care Team (Late st Contact Info) Description 12/02/[address] [address] Deanna Parham MD [address] [facility] [address] [place] [address] Prior Auth - Medication (ciprofloxacin-dexamet hasone (CIPRODEX) 0.3-0.1 % otic suspension - EPA DENIED) Social History Tobacco Use Types Packs/Day Years [...] encounter Miscellaneous Notes * Telephone Encounter - Angelica Ramos - 12/02/2021 11:23 AM CDT Images from the original note were not included. PRIOR AUTHORIZATION DENIED Medication: ciprofloxacin-dexamethasone (CIPRODEX) 0.3-0.1 % otic suspension - EPA DENIED Denial Date: 12/02/2021 Denial Rational: Appeal Information: documented in this encounter Plan of Treatment Upcoming Encounters Date Type Department Care Team (Late st Contact Info) Description 10/13/2023 11:00 AM CDT Office Visit [address] [phone] Deanna Parham MD [address] [place] [phone] 10/13/2023 11:30 AM CDT Office Visit [facility] Audiology [address] [address] Gigi Patterson, Nadeem [address] [place] [address] [phone] documented as of this encounter Visit Diagnoses Diagnosis Chronic otitis media of right ear with posterior perforation- Primary documented in this encounter Care Teams Barge Hand Relationship Specialty Start Date End Date Shimon Graves PCP - General 08/07/10 Deanna Parham MD [address] [place] [address] [id number] Assigned Surgical Provider 04/21/20 documented as of this encounter
--- OUTSIDE RECORDS SUMMARY | 2023-08-31 06:13 | XMS_ITS | Data Portability ---
Author Organization [facility], [facility] Address [address] [place] [address] Care Team Providers Care Preschool Paraprofessional Name Role Phone JESSICA GUERRERO Primary Care Provider Assessment No assessment recorded. Plan of Treatment Reminders Order Date Submit Date Provider Last Modified By Organization Details Last Modified Time Details Appointments None record ed. Lab None record ed. Referral None record ed. Procedures None record ed. Surgeries None record ed. Imaging None record ed. Medication Orders None record ed. Patient TargetsNo targets recorded. Patient InstructionsNo instructions recorded. Reason for Referral None Reported. Results Created Date Observation Date Name Description Value Unit Range Abnormal Flag LastModifiedBy Organization Detail LastModifiedTime 10/03/19 21 09/30/2020 measu remen t of post- voidi ng resid ual urine and/o r bladd er capac ity (PROC ) No observ ation record ed. [email or web address] Not Available 10/02/2020 13:25:26 10/19/19 21 09/23/2020 US, renal No observ ation record ed. Not Available 10/18/2020 11:33:53 10/19/19 21 06/26/2019 US, renal No observ ation record ed. Not Available 10/18/2020 11:34:42 10/19/19 21 09/28/2018 imagi ng/di agnos tic resul t No observ ation record ed. Not Available 10/18/2020 11:35:50 Result Notes None recorded. Problems Name Status Onset Date Resolution Date Notes Provider Name and Address Organization Details Recorded Time Hypertensive disorder Active 020 I10 : Essential (primary) hypertension Not Available [facility] 0 13:33:18 Problem Notes None recorded. Procedures Surgical History None recorded. Imaging Results Imaging Date Name Status LastModified by Organiz ation Details LastModified Time 09/30/2020 measurement of post-voiding residual urine and/or bladder capacity (PROC) completed [email or web address] Information not available 10/02/2020 13:25:26 09/23/2020 US, renal completed Information no t available 10/18/2020 11:33:53 06/26/2019 US, renal completed Information no t available 10/18/2020 11:34:42 09/28/2018 imaging/diagnos tic result completed Information not available 10/18/2020 11:35:50 Procedure Notes None recorded. Medical Equipment None Reported. Allergies Allergen ID Allergen Name Allergen Category Reaction Reaction Severity Criticality Documentation Date Start Date Code Code System Note Provider Name and Address Organization Details Recorded Time 322870 ibuprofen medicatio n Not available Not available Not available 12/17/20192019 5640 RxNorm Not Available [facility] 0 13:33:02 Medications Name Sig Start Date Stop Date Status Note LastModified by Organization Details LastModified Time furosemide 40 mg tablet TAKE 1 TABLET BY MOUTH IN THE MORNING FOR 5 DAYS active Not Available Not Available No t Available atorvastati n 40 mg tablet TAKE 1 TABLET BY MOUTH AT BEDTIME active Not Available Not Available No t Available amlodipine 5 mg tablet TAKE 1 TABLET BY MOUTH ONCE DAILY active Not Available Not Available No t Available triamterene 37.5 mg-hydrochl orothiazide 25 mg capsule TAKE 1 CAPSULE BY MOUTH IN THE MORNING 10/21 completed Not Available Not Available Not Available oxycodone-a cetaminophe n 5 mg-325 mg tablet TAKE 1 TO 2 TABLETS BY MOUTH EVERY 4 HOURS NEEDED FOR PAIN . DO NOT EXCEED 6 PER 24 HOURS . DO NOT EXCEED 4000 MG OF ACETAMINO PHEN PER 24 active Not Available Not Available No t Available potassium chloride 10 mEq/100mL in sterile water intravenous piggyback Inject by intraveno us route. active Not Available Not Available No t Available meclizine 25 mg tablet TAKE 1 TABLET BY MOUTH 4 TIMES DAILY NEEDED active Not Available Not Available No t Available baclofen 10 mg tablet TAKE 1 TO 2 TABLETS BY MOUTH NEEDED IN THE EVENING FOR MUSCLE SPASM active Not Available Not Available No t Available nitroglycer in 0.4 mg sublingual tablet DISSOLVE ONE TABLET UNDER THE TONGUE EVERY 5 MINUTES NEEDED FOR CHEST PAIN. DO NOT EXCEED A TOTAL OF 3 DOSES IN 15 MINUTES active Not Available Not Available No t Available gabapentin 300 mg capsule TAKE 2 CAPSULES BY MOUTH THREE TIMES DAILY active Not Available Not Available No t Available triamterene 37.5 mg-hydrochl orothiazide 25 mg tablet TAKE 1 TABLET BY MOUTH ONCE DAILY active Not Available Not Available No t Available furosemide 20 mg tablet TAKE 1 TABLET BY MOUTH IN THE MORNING active Not Available Not Available No t Available metoprolol succinate ER 25 mg tablet,exte nded release 24 hr TAKE 1 TABLET BY MOUTH ONCE DAILY active Not Available Not Available No t Available ketoconazol e 2 % topical cream APPLY CREAM TOPICALLY TO AFFECTED AREA ONCE DAILY active Not Available Not Available No t Available oxybutynin chloride 5 mg tablet TAKE 1 TABLET BY MOUTH TWICE DAILY active Not Available Not Available No t Available oxycodone 5 mg tablet TAKE 1 TABLET BY MOUTH EVERY 6 HOURS NEEDED FOR PAIN 10/21 completed Not Available Not Available Not Available Asprin Ec Low Dose 81 mg tablet,miguel yed release Take 1 tablet every day by oral route. active Not Available Not Available No t Available chlorhexidi ne gluconate 0.12 % mouthwash RINSE WITH 15ML FOR 30 SECONDS AND SPIT USE TWICE DAILY AFTER BRUSHING AND FLOSSING . USE FOR 7 DAYS. active Not Available Not Available No t Available zinc active Not Available Not Availa ble Not Available Vitals Date Recorded Body height Body mass index (BMI) Body weight Provider Name and Address Organization Details Last Updated DateTime 10/21/2020 167.64 cm 35.5 kg/m2 68457.32 g Nish Carter MD [address] [place] [address],[address], [address], [facility] 10/21/2020 17:12:54 Social History Question Answer Notes LastModified by Organizat ion Details LastModified Time Tobacco Smoking Status Former Smoker Nish Carter MD [address] [place] [address],[address], [address], [facility] 10/21/2020 17:15:34 When Did You Quit Smoking? 16+yearssinc elastcigaret te Information not available 10/21/2020 What Was The Date Of Your Most Recent Tobacco Screening? 10/21/2020 Information not available 10/21/2020 Do You Or Have You Ever Used Any Other Forms Of Tobacco Or Nicotine? No Information not available 10/21/2020 Sex: Unknown Functional Status None recorded. Mental Status None recorded. Family History Relationship Description Onset Age of this Age Resolved Age Notes Unspecified Relation Family history of malignant neoplasm Unspecified Relation Family history of diabetes mellitus Sister Family history of diabetes mellitus Sister Family history of Hypertension Medical History Condition Response High Blood Pressure Y Cancer Y High Cholesterol Y Bleeding Disorder N Gynecological HistoryNo gynecological history recorded. Obstetrics History GPAL:G 0 P 0 0 0 0 Past Encounters Encounter ID Performer Location Encounter Start Date Encounter Closed Date Diagnosis/Indication Diagnosis SNOMED-CT Code [id number] Nish Carter MD [facility] [address] [place] [address] 10/21/2020 16:36:44 10/22/2020 16:47:48 Renal mass [id number] Health Concerns Section Related Observation LastModified by Organization Detai ls LastModified Time None Recorded Concern Status LastModified by Organization Details LastModified Time None Recorded Advance Directives Directive None Recorded Payers Encounter Date Sequence Insurance Name Policy Number Policy Mcclendon Covered Member ID Mcclendon Member ID Guarantor Name 10/21/2020 1 [place] - MEDICARE COST 8 Zandra Strong [id number] Zandar Strong Notes Date Note Type Note Provider Name and Address Organization Details Recorded Time 10/21/2020 text/html HPI Notes: Enlarging right renal mass. This has grown from 1.9cm to 3cm in 2 years. It is being closely followed. She has six cardiac stents and a pacemaker. This has [facility] at [facility]. She does not have any angina. She is not taking any blood thinners besides aspirin. She's also had back surgery as well as right shoulder surgery. 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 She has been evaluated by Radiology and they felt the mass could not be accessed with a needle. This would rule out percutaneuos thermal ablation. She quit smoking 25 years ago. Nish Carter MD [address] [facility],[address], [place], [address], [facility] 10/21/2020 17:56:18 OBGyn Episode No OBEpisode recorded.
[2023-08-31] MEDS: BUPIVACAINE 0.25% 30 ML INJECTION (08:01)
[2023-08-31] MEDS: LIDOCAINE 1% MDV 20 ML INJECTION (08:01)
--- NOTE | 2023-08-31 08:59 | PM.GSPRC ---
Operative Note Date of procedure: 08/31/23 Pre-op diagnosis: Giant cell arteritis Post-op diagnosis: Same Type of Procedure: Right temporal artery biopsy Indications: Patient is an 82 yo female who has been followed in neurology clinic for headaches and vision changes. Risks and benefits of right temporal artery biopsy were discussed at length the patient. Risks included, but were not limited to: Bleeding, infection, risk of damage to surrounding structures and possible need for additional procedures. All questions and concerns were addressed with patient agreeing to proceed. Procedure Description: After discussing the risks and benefits of the procedure, the patient signed informed consent.? The operative site was marked and the patient was brought to the operating room and placed on the operating table in supine position.? Care was taken to pad the patient's pressure points.? The operative site was then prepped and draped in the usual sterile fashion.? A time-out was then performed. Attention was first directed to the right side. The handheld Doppler was utilized to sara out the course of the temporal artery. Local anesthetic was utilized to numb up the area. A 15 blade was used to make an approximate 5 cm incision. Cautery was then used to divide the subcutaneous tissue and assure hemostasis. The artery was visualized within the temporoparietal fascia, which was entered with sharp dissection. A proximal portion of the artery was dissected out and ligated with 3 0 Vicryl and small clips. The dissection was then carried distally for approximately 2 cm and ligated. The specimen was then carefully removed, trying to limit manipulation of the vessel itself, and passed off to the back table. Again hemostasis was assured and the incision closed with interrupted 3 0 Vicryl and running 4 Monocryl. Sterile dressings were then applied. ? The patient was then woken and transported to the recovery area in stable condition. ? The patient tolerated the procedure well. Findings: Normal appearing right temporal artery Anesthesia: local Surgeon: Kari Lin MD Estimated blood loss (mL): 5 Additional Specimen Information: Right temporal artery Condition: stable Disposition: same day
== END 2023-08-31 09:18 | disposition home or self-care (01) ==
PROVIDERS: PCP Student in an Organized Health Care Education/Training Program; Visit Provider Surgery
PROC: (CPT 37609; principal; 2023-08-31 07:30)
DX: M31.6 Other giant cell arteritis (principal); H53.9 Unspecified visual disturbance; R51.9 Headache, unspecified
CPT/HCPCS: 37609; 76998; 88305; J0665